=== PATIENT | male | born 1965 | race African-American/Black ===

== ENCOUNTER 2020-04-24 09:36 | Emergency (ER) | payer OTHER ==
[~2020-04-24] VITALS: Ht 182.9 cm; Wt 174.5 kg
[~2020-04-24 09:36] MED LIST: ATOR20TA PO; CARV10CP PO; HYDR25TA6 PO; LISI5TAB7 PO; NIAC500T PO; RIVA20TA PO; [UNRECOGNIZED DRUG - REMARK]
[2020-04-24] MEDS ORDERED: TRANEXAMIC ACID 100 MG/ML, 10ML ONE (10:25)
[2020-04-24] MEDS ORDERED: LIDOCAINE 1%-EPI 1:100K, 20ML ONE (10:25)
--- NOTE | 2020-04-24 10:41 | NUR ---
FIRST CONTACT WITH PT. 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 WAS ABLE TO CONTROL BLEEDING LAST NIGHT. TODAY, IN SHOWER, BLEEDING STARTED AGAIN. PT'S AOX4. RESPS EVEN AND UNLABORED. DENIES ANY OTHER SX. BP/SPO2 MONITORS IN PLACE. CALL LIGHT WITHIN REACH.
--- NOTE | 2020-04-24 10:50 | NUR ---
PA AT BEDSIDE AT THIS TIME.
[2020-04-24 11:21] VITALS: BP 114/69
--- NOTE | 2020-04-24 11:28 | NUR ---
DRESSING APPLIED PER PA'S VERBAL ORDER AT THIS TIME. PT TOLERATED WELL.
--- NOTE | 2020-04-24 11:55 | NUR ---
Patient given discharge instructions and they have confirmed that they understand the instructions.
== END 2020-04-24 11:56 | disposition home or self-care (01) ==
LOC: ED 10:40
DX: I83.892 Varicose veins of left lower extremity with other complications (principal); M79.662 Pain in left lower leg; I48.91 Unspecified atrial fibrillation
CPT/HCPCS: 99282

== ENCOUNTER → 2020-06-15 | Outpatient (CLI) | payer OTHER ==
[~2020-06-15] MED LIST changes: +ALLO100T30 PO; +AMIO100T4 PO; +AMLO-150 PO; +FURO20TA3 PO; +LEVO50TA5 PO; +ONE A DAY FOR MEN PO; +POTA20TA6 PO
[2020-06-15 17:06] LABS: CHLORIDE 110 mmol/L (98-107)
[2020-06-15 17:12] LABS: ALANINE AMINOTRANSFERASE 47 U/L (12-78); ALBUMIN 3.8 g/dL (3.4-5.0); ALKALINE PHOSPHATASE 87 U/L (45-117); ANION GAP 3 mmol/L (5-15); BILIRUBIN,TOTAL 0.4 mg/dL (0.2-1.0); CALCIUM 8.8 mg/dL (8.5-10.1); TOTAL PROTEIN 7.7 g/dL (6.4-8.2)
== END | disposition home or self-care (01) ==
LOC: STAR 15:11
PROVIDERS: ATTEND Surgery
DX: Z01.812 Encounter for preprocedural laboratory examination (principal); Z20.828 Contact with and (suspected) exposure to other viral communicable diseases; I44.7 Left bundle-branch block, unspecified
CPT/HCPCS: 36415; 80053; 87635; 93005

== ENCOUNTER 2020-06-19 11:31 | Day surgery (SDC) | payer OTHER ==
[~2020-06-19] VITALS: Ht 182.9 cm; Wt 176.0 kg
[~2020-06-19 11:31] MED LIST changes: +BUPIVACAINE/PF 0.5% ONE; +EPINEPHRINE 1 MG/ML, 1ML ONE
[2020-06-19] MEDS ORDERED: CHLORHEXIDINE 15 ML UDC MM ONE (12:00)
[2020-06-19] MEDS ORDERED: LACTATED RINGERS 1,000 ML IV SCH (12:00)
[2020-06-19 12:01] VITALS: BP 144/90
[2020-06-19] MEDS ORDERED: DIAZEPAM 5 MG TABLET PO ONE (13:00)
[2020-06-19] MEDS ORDERED: ACETAMINOPHEN 500 MG TABLET PO ONE (13:00)
[2020-06-19] MEDS ORDERED: PROPOFOL 50 ML ONE (13:50)
[2020-06-19] MEDS ORDERED: FENTANYL PF 250 MCG/5ML ONE (13:50)
[2020-06-19] MEDS ORDERED: DEXAMETHASONE 4 MG/ML, 1ML ONE (13:52)
[2020-06-19] MEDS ORDERED: ONDANSETRON 2MG/ML, 2ML ONE (13:52)
[2020-06-19] MEDS ORDERED: PROPOFOL 10 MG/ML, 20ML ONE (13:52)
[2020-06-19] MEDS ORDERED: CEFAZOLIN 1,000 MG ONE (13:52)
[2020-06-19] MEDS ORDERED: BUPIVACAINE/PF-EPI 0.5% 1:200K INFIL ONE (14:14)
[2020-06-19] MEDS ORDERED: EPHEDRINE 50 MG/ML, 1ML IVPush PRN (14:30)
[2020-06-19] MEDS ORDERED: LABETALOL 5MG/ML, 20ML IV PRN (14:30)
[2020-06-19] MEDS ORDERED: HYDROmorphone 1 MG/ML, 1ML INJ IVPush PRN (14:30)
[2020-06-19] MEDS ORDERED: DIAZEPAM 5 MG/ML, 2ML IVPush PRN (14:30)
[2020-06-19] MEDS ORDERED: EPHEDRINE 50 MG/ML, 1ML IM PRN (14:30)
[2020-06-19] MEDS ORDERED: MEPERIDINE/PF 25MG/0.5ML IVPush PRN (14:30)
[2020-06-19] MEDS ORDERED: OXYcodone 5 MG/5 ML ORAL.SOL UDC PO PRN (14:30)
[2020-06-19] MEDS ORDERED: DIPHENHYDRAMINE 50 MG/ML, 1ML IVPush PRN (14:30)
[2020-06-19] MEDS ORDERED: PROMETHAZINE 25 MG SUPP PR PRN (14:30)
[2020-06-19] MEDS ORDERED: FENTANYL PF 100 MCG/2ML ONE (14:54)
[2020-06-19] MEDS: FENTANYL PF 100 MCG/2ML IV PRN ×3 (14:55→15:15)
[2020-06-19] MEDS ORDERED: OXYcodone 5 MG/5 ML ORAL.SOL UDC ONE (15:06)
== END 2020-06-19 17:26 | disposition home or self-care (01) ==
LOC: OUT 11:31
PROVIDERS: ATTEND Surgery
DX: D17.1 Benign lipomatous neoplasm of skin and subcutaneous tissue of trunk (principal); I10 Essential (primary) hypertension; E78.5 Hyperlipidemia, unspecified; G47.30 Sleep apnea, unspecified; Z98.890 Other specified postprocedural states; Z79.899 Other long term (current) drug therapy; Z87.891 Personal history of nicotine dependence; Z72.89 Other problems related to lifestyle; Z82.49 Family history of ischemic heart disease and other diseases of the circulatory system; Z83.3 Family history of diabetes mellitus
CPT/HCPCS: 21552; 88307; J0171; J0690; J1100; J2405; J2704; J3010

== ENCOUNTER 2020-08-02 05:58 | Day surgery (SDC) | payer OTHER ==
[~2020-08-02] VITALS: Ht 182.9 cm; Wt 179.0 kg
[~2020-08-02 05:58] MED LIST changes: +ACETAMINOPHEN 500 MG TABLET ONE; -BUPIVACAINE/PF 0.5% ONE; +DIAZEPAM 5 MG TABLET ONE; -EPINEPHRINE 1 MG/ML, 1ML ONE; +LISI40TA PO; +PLEASE ENTER HEIGHT AND WEIGHT MC SCH
[2020-08-02 06:44] VITALS: BP 150/86
[2020-08-02 06:47] VITALS: BP 150/86
[2020-08-02] MEDS ORDERED: LACTATED RINGERS 1,000 ML IV SCH (07:00)
[2020-08-02] MEDS ORDERED: CHLORHEXIDINE 15 ML UDC MM ONE (07:00)
[2020-08-02] MEDS ORDERED: LIDOCAINE-MPF 1%, 2ML INFIL ONE (07:00)
[2020-08-02] MEDS ORDERED: PROPOFOL 50 ML ONE (07:30)
[2020-08-02] MEDS ORDERED: ALBUTEROL SULFATE 2.5 MG/3 ML NPPB PRN (08:30)
[2020-08-02] MEDS ORDERED: PROMETHAZINE 25 MG/ML, 1ML IVPush PRN (08:30)
[2020-08-02] MEDS ORDERED: hydrALAzine 20 MG/ML, 1ML IV PRN (08:30)
[2020-08-02] MEDS ORDERED: FENTANYL PF 100 MCG/2ML IV PRN (08:30)
[2020-08-02] MEDS ORDERED: PROMETHAZINE 12.5 MG SUPP PR PRN (08:30)
[2020-08-02] MEDS ORDERED: OXYcodone 5 MG/5 ML ORAL.SOL UDC PO PRN (08:30)
[2020-08-02] MEDS ORDERED: DIAZEPAM 5 MG/ML, 2ML IVPush PRN (08:30)
[2020-08-02] MEDS ORDERED: DIPHENHYDRAMINE 50 MG/ML, 1ML IVPush PRN (08:30)
[2020-08-02] MEDS ORDERED: EPHEDRINE 50 MG/ML, 1ML IVPush PRN (08:30)
[2020-08-02] MEDS ORDERED: MEPERIDINE/PF 25MG/0.5ML IVPush PRN (08:30)
[2020-08-02] MEDS ORDERED: MIDAZOLAM 1 MG/ML, 2ML IV PRN (08:30)
[2020-08-02] MEDS ORDERED: ONDANSETRON 2MG/ML, 2ML IVPush PRN (08:30)
[2020-08-02] MEDS ORDERED: LABETALOL 5MG/ML, 20ML IV PRN (08:30)
[2020-08-02] MEDS ORDERED: HYDROmorphone 1 MG/ML, 1ML INJ IVPush PRN (08:30)
== END 2020-08-02 09:25 | disposition home or self-care (01) ==
LOC: OUT 05:58
PROVIDERS: ATTEND Internal Medicine
DX: Z12.11 Encounter for screening for malignant neoplasm of colon (principal); Z20.828 Contact with and (suspected) exposure to other viral communicable diseases; K57.30 Diverticulosis of large intestine without perforation or abscess without bleeding; D17.79 Benign lipomatous neoplasm of other sites; K64.0 First degree hemorrhoids; I10 Essential (primary) hypertension; E78.5 Hyperlipidemia, unspecified; E03.9 Hypothyroidism, unspecified; M10.9 Gout, unspecified; G47.33 Obstructive sleep apnea (adult) (pediatric); I48.91 Unspecified atrial fibrillation; E66.01 Morbid (severe) obesity due to excess calories; Z79.01 Long term (current) use of anticoagulants; Z79.890 Hormone replacement therapy; Z79.899 Other long term (current) drug therapy
CPT/HCPCS: 45378; 87635; J2704